=== PATIENT | female | born 2000 | race Two or more races ===

== ENCOUNTER 2023-07-24 14:15 | Emergency (ER) | payer MEDICAID ==
[~2023-07-24] VITALS: Ht 170.2 cm; Wt 64.5 kg
[2023-07-24 14:27] VITALS: TEMP 98.1
[2023-07-24 15:15] LABS: BASOPHILS % (AUTO) 0.4 % (0.0-2.0); EOSINOPHILS % (AUTO) 0.1 % (1.0-6.0); HEMATOCRIT 40.2 % (36-46); HEMOGLOBIN 13.3 g/dL (12.0-16.0); LYMPHOCYTES # (AUTO) 1.6 K/uL (1.0-4.8); LYMPHOCYTES % (AUTO) 19.8 % (22.0-44.0); MEAN CORPUSCULAR HEMOGLOBIN 30.5 pg (26.0-34.0); MEAN CORPUSCULAR HGB CONC 33.1 G/dL (31.0-37.0); MEAN CORPUSCULAR VOLUME 92 fL (80-100); MONOCYTES # (AUTO) 0.4 K/uL (0.1-1.0); MONOCYTES % (AUTO) 5.5 % (2.0-9.0); NEUTROPHILS # (AUTO) 6.1 K/uL (1.8-7.7); NEUTROPHILS % (AUTO) 74.2 % (40.0-70.0); PLATELET COUNT (AUTO) 208 K/uL (150-450); RED BLOOD CELL COUNT(AUTO) 4.36 MIL/uL (4.00-5.20); WHITE BLOOD COUNT (AUTO) 8.2 K/uL (4.5-11.0)
[2023-07-24 16:21] LABS: ANION GAP 13 mmol/L (8-16); CALCIUM, TOTAL 9.1 mg/dL (8.8-10.5); CARBON DIOXIDE 25 mmol/L (22-29); CHLORIDE 105 mmol/L (98-107); CREATININE 0.61 mg/dL (0.60-1.30); GLOMERULAR FILTR. RATE CALC > 60 mL/min (>60); GLUCOSE,RANDOM 80 mg/dL (70-110); POTASSIUM 3.5 mmol/L (3.5-5.1); SODIUM SERUM 143 mmol/L (136-145); UREA NITROGEN, BLOOD 11 mg/dL (7-18)
[2023-07-24 17:01] VITALS: BP 122/78; PULSE 80; RESP 16
== END 2023-07-24 19:24 | disposition home or self-care (01) ==
LOC: EMS 14:15
DX: F41.9 Anxiety disorder, unspecified (principal); J45.909 Unspecified asthma, uncomplicated
CPT/HCPCS: 80048; 84703; 85025; 93005; 99284

== ENCOUNTER 2024-10-25 16:04 | Emergency (ER) | payer MEDICAID, OTHER ==
[~2024-10-25] VITALS: Ht 167.6 cm; Wt 64.0 kg
[2024-10-25 16:08] VITALS: TEMP 98.8
[2024-10-25] MEDS: LORazepam 2 MG/ML VIAL IM ONE (18:02)
[2024-10-25 18:30] VITALS: BP 124/78; PULSE 66; RESP 17; O2SAT 98
[2024-10-25] MEDS: LIDOCAINE 1% 10 ML VIAL SQ ONE (18:49)
[2024-10-25] MEDS: BACITRACIN 28 GM OINTMENT TP ONE (18:49)
== END 2024-10-25 20:41 | disposition home or self-care (01) ==
LOC: EMS 16:04
DX: S61.217A Laceration without foreign body of left little finger without damage to nail, initial encounter (principal); F41.9 Anxiety disorder, unspecified; J45.909 Unspecified asthma, uncomplicated; F32.A Depression, unspecified; F17.210 Nicotine dependence, cigarettes, uncomplicated; F12.90 Cannabis use, unspecified, uncomplicated; W45.8XXA Other foreign body or object entering through skin, initial encounter; Y93.89 Activity, other specified; Y92.89 Other specified places as the place of occurrence of the external cause; Y99.8 Other external cause status
CPT/HCPCS: 99283; 73130; 12002; 96372; J2060; J3490

== ENCOUNTER 2024-11-09 17:43 | Emergency (ER) | payer OTHER ==
[~2024-11-09] VITALS: Ht 167.6 cm; Wt 63.6 kg
[2024-11-09 17:44] VITALS: BP 101/69; PULSE 59; RESP 18; TEMP 97.9; O2SAT 99
== END 2024-11-09 18:36 | disposition home or self-care (01) ==
LOC: EMS 17:43
DX: S61.216D Laceration without foreign body of right little finger without damage to nail, subsequent encounter (principal); J45.909 Unspecified asthma, uncomplicated; F41.9 Anxiety disorder, unspecified; F32.A Depression, unspecified; F12.90 Cannabis use, unspecified, uncomplicated; F17.210 Nicotine dependence, cigarettes, uncomplicated; X58.XXXD Exposure to other specified factors, subsequent encounter
CPT/HCPCS: 99281; Z7502